=== PATIENT | male | born 1955 | race African-American/Black ===

== ENCOUNTER 2022-12-13 13:08 | Emergency (ER) | payer MEDICARE, MEDICAID ==
[~2022-12-13] VITALS: Ht 185.4 cm; Wt 92.6 kg
[2022-12-13 13:36] VITALS: BP 107/86
== END 2022-12-13 19:48 | disposition left against medical advice (07) ==
LOC: ER 13:47
DX: M79.10 Myalgia, unspecified site (principal); Z53.21 Procedure and treatment not carried out due to patient leaving prior to being seen by health care provider
CPT/HCPCS: 99281